=== PATIENT | female | born 1975 | race Caucasian/White ===

== ENCOUNTER → 2024-04-18 08:53 | Outpatient (REF) | payer BC, SELFPAY | LOC: HWRAD 08:53 | PROVIDERS: ATTENDING PHYSICIAN Internal Medicine Hematology & Oncology; FAMILY PHYSICIAN Family Medicine | DX: E83.110 Hereditary hemochromatosis (principal) | CPT/HCPCS: 76700 ==

== ENCOUNTER 2024-06-05 08:55 | Emergency (ER) | payer BC, SELFPAY ==
[2024-06-05 08:58] VITALS: BP 102/65
--- NOTE | 2024-06-05 09:54 | ED.GENMED ---
History of Present Illness
General
Chief Complaint: Urinary Symptoms
Source: patient
Time Seen by Provider: 06/05/24 09:18
History of Present Illness
History of Present Illness:
49-year-old female presents to the emergency room complaining of fever with a Tmax of 103, nausea, bilateral flank pain but right greater than left and upper abdominal pain. Symptoms began couple days ago. Patient states she feels similar today as
she did with a kidney infection in the past. She does not have any dysuria or frequency. Patient has a history of hemochromatosis for which she receives phlebotomy every 2 weeks. She does not take any prescription medications. She denies any
vaginal discharge.
Past History
Past History
ED Past Medical History: Other (thalasemia minor, hx of anemia, Migraines, hemochromatosis)
ED Past Surgical History: Cholecystectomy and Gynecological (Ovrian cyst removed)
Social History
Tobacco: Non-smoker
Alcohol: None
Drug: None
Personal:
Living: with family
Phy Exam
Physical Exam
Physical Exam:
General: Awake, Alert, Oriented X3. No acute distress.
Vitals: unremarkable
Head: Atraumatic
Eyes: Pupils equal, EOMI
Throat: Airway intact, no exudates
Neck: Trachea midline
Lungs: Clear and equal b/l
Heart: Regular rate, no murmurs
Abd: Soft, some tenderness outpatient right upper quadrant, no rebound no pulsatile mass
Back: Right CVA tenderness to percussion
Neuro: Nonfocal
Skin: Warm, dry, no rash
Extremities: pulses equal b/l, no edema
Course
Orders/Labs/Results
Orders:
Orders
06/05/24 09:33
Urinalysis Reflex To Culture Urgent
Date Specimen was Collected: 06/05/24
Time Specimen was Collected: 09:32
06/05/24 09:51
0.9% Sodium Chloride 1000 ml [Nss] 1,000 ml IV BOLUS
Ketorolac [Toradol] 15 mg IV NOW STA
Test Result ONCE
06/05/24 10:00
Complete Blood Count/With Diff Urgent
Comprehensive Metabolic Panel Urgent
HCG, Serum Qualitative Screen Urgent
Lipase Urgent
06/05/24 10:49
CR Chest - 2 Views Urgent
Comment:
Reason For Exam: fever, right lower chest/upper abd pain
06/05/24 10:52
CT Abd/pelvis W Iv Cont Urgent
Comment:
Reason For Exam: upper abd pain
06/05/24 10:56
COVID-19 Antigen Urgent
Source: Nasal Swab
Influenza A+B Rapid Molecular Urgent
RACHANA Source: Nasal Swab
Specimen Description:
06/05/24 12:39
Cephalexin Monohydrate [Keflex] 500 mg PO NOW STA
Abnormal Lab Results
06/05/24 06/05/24
09:33 10:00
Hgb 9.1 L g/dL
(12.0-16.0)
Hct 27.8 L %
(37.0-47.0)
MCV 60.7 L fL
(81.0-99.0)
MCH 19.9 L pg
(27.0-31.0)
MCHC 32.7 L g/dL
(33.0-37.0)
RDW 15.7 H %
(11.5-14.5)
Absolute Monos (auto) 1.0 H 10^3/uL
(0.1-0.6)
Lymphocytes % 17.0 L %
(20.5-51.1)
Monocytes % 14.7 H %
(1.7-9.3)
Glucose 114 H mg/dl
(70-99)
Total Bilirubin 1.4 H mg/dl
(0.2-1.3)
Total Protein 6.2 L g/dl
(6.3-8.2)
Urine Urobilinogen 3+ A
(Neg - 1+)
06/05/24 10:00
06/05/24 10:00
Vital Signs
Initial and Last Documented VS:
Initial Vital Signs
Temp Pulse Resp BP Pulse Ox
98.4 F 71 16 102/65 98
06/05/24 08:58 06/05/24 08:58 06/05/24 08:58 06/05/24 08:58 06/05/24 08:58
Last Documented Vital Signs
Temp Pulse Resp BP Pulse Ox
98.4 F 75 20 104/72 99
06/05/24 08:58 06/05/24 12:00 06/05/24 12:00 06/05/24 12:00 06/05/24 12:00
MDM/Problems Addressed
Differential Diagnosis Includes:
biliary colic, kidney stone, pyelo
MDM/Problems Addressed:
Patient presents with right flank pain and upper abdominal pain. Urinalysis surprisingly essentially normal. Labs show normal white count, normal LFTs other than a mildly elevated bilirubin. Patient does have a history of hemochromatosis which
explains the elevated bilirubin, the hemoglobin of 9.1. A CT scan of the abdomen and pelvis was ordered. There are hepatic changes that are also consistent with hemochromatosis. Right kidney appears to have changes consistent with pyelo-.
Patient revealed that she has been taking amoxicillin for the past couple days. Suspect this has caused the urine to be negative. Will treat with oral antibiotics. Patient stable for discharge home
*Radiology
Radiology exam reviewed: radiology read reviewed
*Pulse Oximetry
Patient hypoxic: no
*Critical Care Note
Total Time (30-74mins, 75-104mins- exclusive of procedures): Not Applicable
ED Attending Note
-
Portions of this chart may have been created with voice recognition software.� Occasional wrong word or��sound alike� substitutions may have occurred due to the inherent limitations of voice recognition software.
Discharge Plan
Departure
Patient Disposition: Home (Routine Discharge)
Date of Disposition: 06/05/24
Time of Disposition: 12:42
Patient with high blood pressure during this ER visit?: No
Condition: Good
Discharge Problem:
Pyelonephritis
Instructions: Urinary Tract Infection, Adult ED
Prescriptions:
New
cephalexin 500 mg capsule
500 mg PO BID 10 Days Qty: 20 0RF
ondansetron 4 mg tablet,disintegrating
4 mg PO Q6H PRN (Reason: nausea and vomiting) Qty: 20 0RF
No Action
cefdinir 300 MG capsule
300 mg PO BID Qty: 14 0RF
levofloxacin [Levaquin] 750 MG tablet
750 mg PO DAILY Qty: 6 0RF
Referrals:
Lee Ann Robles MD [Family Provider] -
Interventions
Interventions:
*Risk Screen - Suicide Last Done: 06/05/24 08:59
*General Assessment Last Done: 06/05/24 10:00
*Neglect/Abuse Screening Last Done: 06/05/24 08:59
*ED COVID-19 Vaccine History Last Done: 06/05/24 08:59
*Nursing Disposition Last Done: 06/05/24 13:04
ED-Female Genitourinary Assessment Last Done: 06/05/24 10:00
Discharge Date and Time
Discharge Date/Time: 06/05/24 13:04
Print Language: MAORI
[2024-06-05] MEDS: TORADOL 15 MG IV (10:01)
[2024-06-05] MEDS: NSS 1000 IV (10:01)
[2024-06-05 10:04] VITALS: BP 94/63
[2024-06-05 10:10] LABS: Urine Albumin Negative (Neg - Trace); Urine Bilirubin Negative (Negative); Urine Character Clear (Clear); Urine Color Yellow; Urine Glucose Negative (Negative); Urine Ketone Negative (Negative); Urine Leukocyte Negative (Negative); Urine Nitrite Negative (Negative); Urine Occult Blood Negative (Negative); Urine Specific Gravity 1.015 (<1.030); Urine Urobilinogen 3+ (Neg - 1+)
[2024-06-05 10:35] LABS: HCG, Serum Qualitative Screen Negative
[2024-06-05 10:38] LABS: ALT (SGPT) 30 U/L (0-35); AST (SGOT) 36 U/L (14-36); Albumin 3.8 g/dl (3.5-5.0); Alkaline Phosphatase 60 U/L (38-126); Blood Urea Nitrogen 13 mg/dl (7-17); Calcium 8.7 mg/dl (8.4-10.2); Carbon Dioxide 27 mmol/L (22-30); Chloride 104 mmol/L (98-107); Glucose 114 mg/dl (70-99); Lipase 42 U/L (23-300); Potassium 3.9 mmol/L (3.5-5.1); Sodium 139 mmol/L (135-145); Total Bilirubin 1.4 mg/dl (0.2-1.3); Total Protein 6.2 g/dl (6.3-8.2); eGFR > 60.00
[2024-06-05 10:47] LABS: % Basophils 0.3 % (0-2); % Eosinophils 1.1 % (0-6); % Immature Granulocytes 0.3 % (0-0.5); % Monocytes 14.7 % (1.7-9.3); % Neutrophils 66.6 % (42.2-75.2); Absolute Eosinophils 0.1 10^3/uL (0-0.7); Absolute Lymphocytes 1.2 10^3/uL (1.2-3.4); Absolute Neutrophils 4.6 10^3/uL (1.4-6.5); Hematocrit 27.8 % (37.0-47.0); Hemoglobin 9.1 g/dL (12.0-16.0); Mean Corp Hgb Conc. 32.7 g/dL (33.0-37.0); Mean Corpuscular Hgb 19.9 pg (27.0-31.0); Mean Corpuscular Volume 60.7 fL (81.0-99.0); Nucleated Red Blood Cells % 0 %; Platelet Count 137 10^3/uL (130-400); Red Blood Cell Count 4.58 10^6/uL (4.20-5.40); Red Cell Dist. Width 15.7 % (11.5-14.5)
[2024-06-05 11:20] LABS: COVID-19 Antigen Negative (Negative)
[2024-06-05 12:00] VITALS: BP 104/72
[2024-06-05] MEDS: KEFLEX 500 MG PO (12:49)
== END 2024-06-05 13:04 | disposition home or self-care (01) ==
LOC: EMR 08:55
PROVIDERS: EMERGENCY PHYSICIAN Emergency Medicine; FAMILY PHYSICIAN Family Medicine
DX: N12 Tubulo-interstitial nephritis, not specified as acute or chronic (principal); Z11.52 Encounter for screening for COVID-19
CPT/HCPCS: 99285; 96374; 96361; 71046; 74177; 80053; 81003; 83690; 84703; 85025; 87502; 87811; Q9967

== ENCOUNTER 2025-02-07 07:49 | Inpatient (IN) | payer BC, SELFPAY ==
[2025-02-07] VITALS (14 sets, daily range): BP systolic 98–134; BP diastolic 53–74; BMI 30.4; BMI 29.9
[2025-02-07 01:21] LABS: HCG, Serum Qualitative Screen Negative; Hematocrit 31.2 % (37.0-47.0); Hemoglobin 10.1 g/dL (12.0-16.0); Mean Corp Hgb Conc. 32.4 g/dL (33.0-37.0); Mean Corpuscular Volume 63.0 fL (81.0-99.0); Nucleated Red Blood Cells % 0 %; Platelet Count 155 10^3/uL (130-400); Red Cell Dist. Width 18.1 % (11.5-14.5)
[2025-02-07 01:28] LABS: ALT (SGPT) 41 U/L (0-35); AST (SGOT) 40 U/L (14-36); Albumin 4.5 g/dl (3.5-5.0); Alkaline Phosphatase 86 U/L (38-126); Blood Urea Nitrogen 15 mg/dl (7-17); Calcium 9.0 mg/dl (8.4-10.2); Carbon Dioxide 24 mmol/L (22-30); Chloride 108 mmol/L (98-107); Glucose 123 mg/dl (70-99); Potassium 3.9 mmol/L (3.5-5.1); Sodium 138 mmol/L (135-145); Total Protein 7.1 g/dl (6.3-8.2); eGFR > 60.00
[2025-02-07 01:32] LABS: COVID-19 Antigen Negative (Negative)
[2025-02-07 03:13] LABS: Urine Character Clear (Clear)
[2025-02-07 03:56] LABS: Urine Squamous Cell 16-20 /LPF (Few)
[2025-02-07 03:57] LABS: Urine White Cell 50-60 /HPF (0-5)
--- NOTE | 2025-02-07 05:02 | ED.GENMED ---
History of Present Illness
General
Chief Complaint: Head Injury
Source: patient
Exam Limitations: none
Time Seen by Provider: 02/07/25 04:41
Nursing documentation reviewed up to this point in time: agreed with
History of Present Illness
History of Present Illness:
Note:
CHIEF COMPLAINT(S)
Headache following a head injury.
HISTORY OF PRESENT ILLNESS
The patient is a 50-year-old female with a pmh of migraines, hemochromatosis, who presented with a headache following a head injury sustained three days ago. The patient reports that she bent down to pick something off the ground, and as she stood
up, she struck her head on a lift gate that was closing. Since the incident, she has experienced a persistent headache and reports a sensation of 'everything hurts.' The patient confirms the presence of a headache at the time of examination and has
been experiencing associated symptoms, including fever and chills, with the highest fever making her feel extremely hot, necessitating bundling in blankets for warmth. Additionally, she reports vague abdominal discomfort, beginning around the same
time as the head injury. No visual changes reported however she has had nausea and vomiting were reported. The abdominal discomfort is not accompanied by urinary symptoms. The patient mentioned a possible history of a previous kidney infection and
states that her current symptoms match that experience.
PHYSICAL EXAM
General: Patient is well appearing and in no acute distress; non-toxic
Skin: Warm and dry, no rashes or lesions
Head: Normocephalic, atraumatic
Eyes: Sclera non-icteric. EOMs intact.
Cardiac: Regular rate and rhythm, no murmurs
Peripheral Vascular: No lower extremity swelling or edema
Pulm: Normal respiratory effort
Abdomen: Left sided abdominal tenderness to palpation
Neuro: CN II-XII intact, no focal neurologic deficits.
Psychiatric: Appropriate mood and affect.
Nursing notes reviewed and vital signs reviewed.
PROBLEM LIST
Acute:
- Headache following head injury
- Fever and chills
- Abdominal discomfort
PLAN
- Administer medications to alleviate headache and provide comfort.
- Perform a computed tomography (CT) scan of the head to rule out any intracranial injury.
- Obtain a CT scan of the abdomen to evaluate for kidney stones or infections, given the elevated bilirubin and abdominal pain symptoms.
- Provide intravenous fluids for hydration and to help manage symptoms.
DIFFERENTIAL DIAGNOSIS
The Differential Diagnosis includes, in no particular order and is not limited to:
- Post-traumatic headache
- Concussion
- Intracranial hemorrhage
- Meningitis
- Sinusitis
- Gallbladder issues
- Liver dysfunction
- Kidney infection
- Kidney stones
- Dehydration
MDM/DISPOSITION
50 y/o female presents to the ER with multiple complaints, with her chief complaint of fevers, chills, abdominal pain, vomiting. She states that it feels like when she had a kidney infection in the past. CT and urinalysis concerning for acute
pyelonephritis. Patient developed a fever while in the ER. Will admit for IV abx. Will send off blood cultures and lactic acid.
Past History
Past History
ED Past Medical History: Other (thalasemia minor, hx of anemia, Migraines, hemochromatosis)
ED Past Surgical History: Cholecystectomy and Gynecological (Ovrian cyst removed)
Social History
Tobacco: Non-smoker
Alcohol: None
Drug: None
Personal:
Living: with family
Phy Exam
Physical Exam
Physical Exam:
see hpi
Course
Orders/Labs/Results
Orders:
Orders
02/07/25 00:53
Test Result ONCE
02/07/25 01:03
COVID-19 Antigen Urgent
Source: Nasal Swab
Complete Blood Count/With Diff Urgent
Comprehensive Metabolic Panel Urgent
HCG, Serum Qualitative Screen Urgent
INF RAPID [Influenza A+B Rapid Molecular] Urgent
RACHANA Source: Nasal Swab
Specimen Description:
02/07/25 03:02
Urinalysis Reflex To Culture Urgent
Date Specimen was Collected: 02/07/25
Time Specimen was Collected: 03:01
Urine Microscopic Reflex Cult Urgent
Urine Culture Urgent
RACHANA Source: U
Specimen Description:
Date Specimen was Collected: 02/07/25
Time Specimen was Collected: 03:01
02/07/25 05:01
CT Abd/pelvis W Iv Cont Urgent
Comment:
Reason For Exam: left sided abdominal pain
CT Head W/o Iv Contrast Urgent
Comment:
Reason For Exam: dizziness, head trauma
Diphenhydramine [Benadryl] 25 mg IV NOW STA
Metoclopramide [Reglan] 10 mg IV NOW STA
02/07/25 05:25
0.9% Sodium Chloride 500 ml [Nss] 500 ml IV BOLUS
02/07/25 06:11
Acetaminophen 1000MG/100Ml [Ofirmev] 1,000 mg in 100 ml IV ONCE
Acetaminophen IV Indication:: Targeted Temp Management
02/07/25 06:12
Acetaminophen 1000MG/100Ml [Ofirmev] 1,000 mg in 100 ml .ROUTE .STK-MED
02/07/25 06:22
Lactic Acid Q4H
Comment: ON ICE, CANCEL 2ND ORDER IF FIRST LACTIC ACID LEVEL <2
Blood Culture Q20M
RACHANA Source: Blood/Venous
Specimen Description:
Comment: Urgent from separate sites. If patient screens positive for possible sepsis
Blood Culture Q20M
RACHANA Source: Blood/Venous
Specimen Description:
Comment: Urgent from separate sites. If patient screens positive for possible sepsis
02/07/25 07:04
CefTRIAXone [Rocephin] 1,000 mg IV NOW STA
02/07/25 07:43
Admit/Transfer Patient As Directed
Co-Sign Provider:
Level of Care: Inpatient admission
Assign to:: Medical/Surgical
Physician / Group: Efren/hospitalist
Diagnosis: sepsis, pyelo
Reason for Hospitalization: sepsis, pyelo
Expected length of stay greater than two midnights?: Yes
ELOS- Estimated Length of Stay in days: 3
I certify the patient meets the requirements for IP care: Yes
Code Status As Directed
Resuscitation Status: Full Code
PRN Pain Medication Management As Directed
May give lesser potent ordered pain med per pt: Yes
preference::
Protocol:: Medication orders for pain may be administered in a
manner that supports deferring to patient preference
when the pt is:
- Requesting an ordered lesser potent pain medication.
Least to most potent pain medications are defined
as: acetaminophen < NSAID < tramadol < opioids
(morphine, oxycodone, hydromorphone).
- Requesting a lesser dose of the same medication IF
ORDERED.
- Requesting a less intrusive route of administration
if both routes are prescribed by the provider (PO <
IV).
02/07/25 09:30
Acetaminophen [Tylenol] 650 mg PO Q4HPRN PRN
Bisacodyl [Dulcolax] 10 mg RECTAL [id number] PRN
Docusate W/Senna [Senokot-S] 1 tablet PO BIDPRN PRN
Ondansetron Injectable [Zofran] 4 mg IV Q6HPRN PRN
Polyethylene Glycol Powder [Miralax] 17 grams PO DAILYPRN PRN
02/07/25 09:30
Activity As Directed
Activity Level: As Tolerated
Advance Diet as Tolerated As Directed
Goal Diet: Regular
Vital Signs As Directed
Frequency: Per unit guidelines
DX Deep Vein Thrombosis Video Routine
02/07/25 Lunch
Clear Liquid
At Your Request: Full Participation
Does patient need a safe tray?: No
02/07/25 18:00
Enoxaparin Sodium [Lovenox] 40 mg SC QPM
02/08/25 06:00
Basic Metabolic Panel IN AM
Complete Blood Count/With Diff IN AM
Magnesium IN AM
02/08/25 08:00
CefTRIAXone [Rocephin] 1,000 mg IV Q24H
02/09/25 06:00
Basic Metabolic Panel IN AM
Complete Blood Count/With Diff IN AM
02/10/25 06:00
Basic Metabolic Panel IN AM
Complete Blood Count/With Diff IN AM
02/11/25 06:00
Basic Metabolic Panel IN AM
Complete Blood Count/With Diff IN AM
02/12/25 06:00
Basic Metabolic Panel IN AM
Complete Blood Count/With Diff IN AM
Abnormal Lab Results
02/07/25 02/07/25
01:03 03:02
Hgb 10.1 L g/dL
(12.0-16.0)
Hct 31.2 L %
(37.0-47.0)
MCV 63.0 L fL
(81.0-99.0)
MCH 20.4 L pg
(27.0-31.0)
MCHC 32.4 L g/dL
(33.0-37.0)
RDW 18.1 H %
(11.5-14.5)
Absolute Neuts (auto) 8.2 H 10^3/uL
(1.4-6.5)
Absolute Lymphs (auto) 0.6 L 10^3/uL
(1.2-3.4)
Absolute Monos (auto) 1.0 H 10^3/uL
(0.1-0.6)
Neutrophils % 83.1 H %
(42.2-75.2)
Lymphocytes % 6.0 L %
(20.5-51.1)
Monocytes % 10.1 H %
(1.7-9.3)
Chloride 108 H mmol/L
(98-107)
Glucose 123 H mg/dl
(70-99)
Total Bilirubin 2.7 H mg/dl
(0.2-1.3)
AST 40 H U/L
(14-36)
ALT 41 H U/L
(0-35)
Ur Occult Blood Reflex 2+ A
(Negative)
Urine Urobilinogen 2+ A
(Neg - 1+)
Leukocyte Esterase Rfl 3+ A
(Negative)
Urine RBC 3-6 A /HPF
(0-2)
Urine WBC (Reflex) 50-60 A /HPF
(0-5)
Urine Bacteria (Reflex) Few A
(Negative)
Urine Yeast Few A
(Negative)
02/07/25 01:03
02/07/25 01:03
Vital Signs
Initial and Last Documented VS:
Initial Vital Signs
Temp Pulse Resp BP Pulse Ox
98.2 F 76 24 134/74 98
02/07/25 00:49 02/07/25 00:49 02/07/25 00:49 02/07/25 00:49 02/07/25 00:49
Last Documented Vital Signs
Temp Pulse Resp BP Pulse Ox
99.4 F 74 16 99/58 98
02/07/25 09:38 02/07/25 09:38 02/07/25 09:38 02/07/25 09:38 02/07/25 09:38
*Pulse Oximetry
SaO2: 99
Oxygen Mode of Delivery: Room air
Patient hypoxic: no
*Critical Care Note
Total Time (30-74mins, 75-104mins- exclusive of procedures): Not Applicable
ED Attending Note
-
Portions of this chart may have been created with voice recognition software.� Occasional wrong word or��sound alike� substitutions may have occurred due to the inherent limitations of voice recognition software.
Discharge Plan
Departure
Patient Disposition: Admit
Date of Disposition: 02/07/25
Time of Disposition: 07:11
Admit to: Med/Surg
Presentation/result/management discussed w/ accepting MD/DO: Hospitalist
Patient with high blood pressure during this ER visit?: Yes
Condition: Fair
Discharge Problem:
Acute pyelonephritis, Fever
Interventions
Interventions:
*Risk Screen - Suicide Last Done: 02/07/25 00:49
*General Assessment Last Done: 02/07/25 07:55
*Neglect/Abuse Screening Last Done: 02/07/25 00:49
*ED- Fall Risk Assessment Last Done: 02/07/25 07:55
*ED COVID-19 Vaccine History Last Done: 02/07/25 07:55
*Nursing Disposition Last Done: 02/07/25 08:49
ED- Neurological Assessment Last Done: 02/07/25 03:32
ED-Skin Assessment Last Done: 02/07/25 07:55
Discharge Date and Time
Discharge Date/Time: 02/07/25 09:25
[2025-02-07] MEDS: BENADRYL 25 MG IV (05:09)
[2025-02-07] MEDS: REGLAN 10 MG IV (05:10)
[2025-02-07] MEDS: NSS 500 IV (05:40)
[2025-02-07] MEDS: OFIRMEV 100 IV (06:14)
[2025-02-07] MEDS: ROCEPHIN 1000 MG IV (07:25)
--- NOTE | 2025-02-07 07:28 | HPS.HSE ---
Family Physician
-
Family Physician: NOT KNOW UNKNOWN - PT DOES
Chief Complaint
-
headache
N/V/abd pain, fever
History of Present Illness
HPI: 50-year-old female with PMH thalassemia minor/anemia, migraines, hemochromatosis; p/w headache following a head injury sustained three days ago.
This happened when she bent down to pick something up, and struck her head on a lift gate that was closing when she stood up.
She also c/o abd pain, N/V, fever/chills for about 3 days too.
Medical History
Past Medical History
Past Medical History: Reports Other
Additional Past Medical History:
thalassemia minor/anemia,
migraines,
hemochromatosis
Past Surgical History: Reports Cholecystectomy and Gynocological (ovarian cyst removal )
Social History
Tobacco: Non-smoker
Alcohol: Occasional
Living: With Family
Family History
Family History: Not pertinent
Allergies / Home Medications
Allergies reflects when Allergies were last updated in [facility].
Home Medications with original date entered in [facility]
Allergy/Medication List:
Allergies
Allergy/AdvReac Type Severity Reaction Status Date / Time
No Known Allergies Allergy Verified 02/07/25 00:52
Home Medications
ondansetron 4 mg disintegrating tablet 4 mg PO Q6H PRN nausea and vomiting #20 tabs 06/05/24
Review of Systems
-
Abdomen/GI: Reports See HPI, Abdominal Pain (lower quadrants ), Nausea and Vomiting
Neurological: Reports Headache
Physical Exam
Vital Signs
Vital Signs
Temp Pulse Resp BP Pulse Ox
38.0 C H 72 20 106/60 96
02/07/25 06:14 02/07/25 06:30 02/07/25 06:30 02/07/25 06:00 02/07/25 06:30
Physical Exam
General: Well Developed, Well Nourished, No Apparent Distress, Comfortable and Conversant
HEENT: NormoCephalic, Moist mucous membranes and Atraumatic
Respiratory: Clear and Non Labored Respirations; No Accessory Resp Muscle Use
Cardiac: S1/S2 and Regular Rhythm; No Murmur or Rub
GI: Soft, Non Tender, Non Distended and Normal Bowel Sounds; No Organomegaly
Rectal: Deferred by Provider
Musculoskeletal: No Clubbing, No Cyanosis and No Edema
Skin: No Rash
Neuro: Awake and Alert
Psych: Calm and Intact Judgment/Insight
Laboratory Results
-
02/07/25 01:03
02/07/25 01:03
Laboratory Results
Lactic Acid Cancelled 02/07/25 10:15
Total Bilirubin 2.7 mg/dl (0.2-1.3) H 02/07/25 01:03
AST 40 U/L (14-36) H 02/07/25 01:03
ALT 41 U/L (0-35) H 02/07/25 01:03
Alkaline Phosphatase 86 U/L (38-126) 02/07/25 01:03
Data Reviewed
-
Lab Data: Labs Reviewed by me
Impression/Plan
-
HPI: 50-year-old female with PMH thalassemia minor/anemia, migraines, hemochromatosis; p/w headache following a head injury sustained three days ago.
This happened when she bent down to pick something up, and struck her head on a lift gate that was closing when she stood up.
She also c/o abd pain, N/V, fever/chills for about 3 days too.
A/P:
# Sepsis POA 2/[address] imaging
Follow formal CT AP report
Follow blood cultures and urine culture
cont Ceftriaxone
Clears for now 2/2 N/V, advance when able
# headache from head injury
Follow CT head formal report
Tylenol for mild pain and fever
Other medical conditions:
# thalassemia minor/anemia
# migraines
# hemochromatosis
DVT ppx: Lovenox SQ
FC
--- NOTE | 2025-02-07 09:02 | EDRN ---
this RN called the receiving unit and notified them that paper report was going to be tubed up
[2025-02-07] MEDS: TYLENOL 650 MG PO ×3 (09:49→23:02)
--- NOTE | 2025-02-07 10:12 | PTCARENOTE ---
Received patient from ED via stretcher. AAOx3, drowsy but arousable. Assessed and oriented to room. Complaining of a headache 5/10. Tylenol given as ordered. Call regalado in close reach.
--- NOTE | 2025-02-07 12:27 | CM ---
CM met with pt bedside
P resides with her three minor children (11, 16, 17) and has custody of her nephew (17)
Care has been arranged for her children
They reside in a splt level home with 4 CORTES, 15 steps to bedroom and full bathroom
Pt is indep with her ADLs, no DMEs, drives+
Denies financial insecurities
PCP- [facility]
Rx- [facility]
Discharge Disposition- anticipate no needs on dc
[2025-02-07] MEDS: FIORICET 1 TAB PO (13:51)
[2025-02-07] MEDS: IMITREX 50 MG PO (18:06)
[2025-02-08] MEDS: STERILE WATER FOR INJECTION 10 ML IV (07:43)
[2025-02-08] MEDS: ROCEPHIN 1000 MG IV (07:43)
[2025-02-08 07:47] VITALS: BP 101/79
[2025-02-08 07:50] LABS: Hematocrit 29.6 % (37.0-47.0); Hemoglobin 9.5 g/dL (12.0-16.0); Mean Corp Hgb Conc. 32.1 g/dL (33.0-37.0); Mean Corpuscular Volume 63.1 fL (81.0-99.0); Nucleated Red Blood Cells % 0 %; Platelet Count 143 10^3/uL (130-400); Red Cell Dist. Width 17.8 % (11.5-14.5)
[2025-02-08 08:02] LABS: Blood Urea Nitrogen 10 mg/dl (7-17); Calcium 8.8 mg/dl (8.4-10.2); Carbon Dioxide 24 mmol/L (22-30); Chloride 105 mmol/L (98-107); Estimated Creatinine Clearance 99 ml/min; Glucose 98 mg/dl (70-99); Magnesium 2.0 mg/dl (1.6-2.3); Potassium 3.6 mmol/L (3.5-5.1); Sodium 136 mmol/L (135-145); eGFR > 60.00
[2025-02-08] MEDS: TYLENOL #3 1 TABLET PO ×3 (08:54→19:27)
--- NOTE | 2025-02-08 10:29 | W.PN.HOSP.TC ---
Today's Communication/Plan
-
see A/P
Assessment / Plan
Assessment / Plan
HPI: 50-year-old female with PMH thalassemia minor/anemia, migraines, hemochromatosis; p/w headache following a head injury sustained three days ago.
This happened when she bent down to pick something up, and struck her head on a lift gate that was closing when she stood up.
She also c/o abd pain, N/V, fever/chills for about [address] AP:
1. Findings are most consistent with bilateral pyelonephritis.
2. Splenomegaly, without significant change from previous examination.
3. Post cholecystectomy.
A/P:
# Sepsis POA 2/[address] imaging
Follow urine culture,
blood cultures x2 negative so far
cont Ceftriaxone
N/V appear to have resolved, advance clears to solid diet
# headache from recent head injury, improved
CT head without acute intracranial abnormality.
Tylenol #3 for mild pain and fever
Other medical conditions:
# thalassemia minor/anemia
# migraines
# hemochromatosis
DVT ppx: Lovenox SQ
FC
DW RN
Anticipated Discharge: Within 24 hours
Subjective/Interval History
-
Date of Service: February 08, 2025
Objective Data
-
Labs:
Laboratory Results
02/08/25
07:16
WBC 10.0
Hgb 9.5 L
Hct 29.6 L
Plt Count 143
Sodium 136
Potassium 3.6
Chloride 105
Carbon Dioxide 24
BUN 10
Creatinine 0.7
Glucose 98
Calcium 8.8
Vital Signs:
Vital Signs
Temp Pulse Resp BP Pulse Ox
37.8 C 79 18 101/79 98
02/08/25 07:47 02/08/25 07:47 02/08/25 07:47 02/08/25 07:47 02/08/25 07:50
I&O
02/07/25 02/08/25 02/09/25
06:59 06:59 06:59
Intake Total 1440 / 1440
Balance 1440 / 1440
Review of Systems
-
History Source: Patient
All other systems: Reviewed and negative
Abdomen/GI: Denies Abdominal Pain (much resolved )
Neuro: Denies Headache (resolved )
Physical Exam
-
General: Well Developed, Well Nourished, No Apparent Distress, Comfortable and Conversant; Negative Respiratory Distress
HEENT: Normocephalic, Atraumatic, Nose Appears Normal and Ears Appear Normal; Negative Oxygen
Respiratory: Clear to Auscultation and Non Labored Respirations; Negative Accessory Resp Muscle Use
Cardiac: Regular Rhythm and S1/S2
GI: Soft, Nontender, Nondistended and Normal Bowel Sounds
Skin: Warm and Dry
Neuro: Awake and Alert
Psych: Calm and Intact Judgement/Insight
Data Reviewed
-
CT Scan: Report Reviewed by me
Labs: Labs Reviewed by me
[2025-02-08 15:42] VITALS: BP 109/63
[2025-02-08 23:40] VITALS: BP 99/53
[2025-02-09] MEDS: TYLENOL #3 1 TABLET PO ×2 (01:35→08:37)
[2025-02-09 07:20] VITALS: BP 132/77
[2025-02-09 07:55] VITALS: BP 132/77
[2025-02-09 07:58] LABS: Hematocrit 28.5 % (37.0-47.0); Hemoglobin 9.2 g/dL (12.0-16.0); Mean Corp Hgb Conc. 32.3 g/dL (33.0-37.0); Mean Corpuscular Volume 63.1 fL (81.0-99.0); Nucleated Red Blood Cells % 0 %; Platelet Count 144 10^3/uL (130-400); Red Cell Dist. Width 17.2 % (11.5-14.5)
[2025-02-09 08:22] LABS: Blood Urea Nitrogen 13 mg/dl (7-17); Calcium 8.5 mg/dl (8.4-10.2); Carbon Dioxide 24 mmol/L (22-30); Chloride 108 mmol/L (98-107); Estimated Creatinine Clearance 116 ml/min; Glucose 100 mg/dl (70-99); Potassium 3.9 mmol/L (3.5-5.1); Sodium 138 mmol/L (135-145); eGFR > 60.00
[2025-02-09] MEDS: STERILE WATER FOR INJECTION 10 ML IV (08:38)
[2025-02-09] MEDS: ROCEPHIN 1000 MG IV (08:38)
--- NOTE | 2025-02-09 09:23 | W.PN.HOSP.TC ---
Addendum entered and electronically signed by Amie Schwartz MD 02/09/25 13:19:
total DC time 40 min
Original Note:
Today's Communication/Plan
-
see A/P
DC today
Assessment / Plan
Assessment / Plan
HPI: 50-year-old female with PMH thalassemia minor/anemia, migraines, hemochromatosis; p/w headache following a head injury sustained three days ago.
This happened when she bent down to pick something up, and struck her head on a lift gate that was closing when she stood up.
She also c/o abd pain, N/V, fever/chills for about [address] AP:
1. Findings are most consistent with bilateral pyelonephritis.
2. Splenomegaly, without significant change from previous examination.
3. Post cholecystectomy.
A/P:
# Sepsis POA 2/[address] imaging
urine culture positive for E coli, sensitive to Keflex
blood cultures x2 negative
Deescalate Ceftriaxone to Keflex on discharge, can treat for 3 more days
N/V resolved and diet advanced to solid
Can start methenamine with vit C after Abx for recurrent UTI prevention
# headache from recent head injury, improved
CT head without acute intracranial abnormality.
Tylenol #3 for mild pain and fever
Other medical conditions:
# thalassemia minor/anemia
# migraines
# hemochromatosis
DVT ppx: Lovenox SQ
FC
DW RN
Anticipated Discharge: Today
Subjective/Interval History
-
Date of Service: February 09, 2025
Objective Data
-
Labs:
Laboratory Results
02/09/25
07:36
WBC 6.8
Hgb 9.2 L
Hct 28.5 L
Plt Count 144
Sodium 138
Potassium 3.9
Chloride 108 H
Carbon Dioxide 24
BUN 13
Creatinine 0.6
Glucose 100 H
Calcium 8.5
Vital Signs:
Vital Signs
Temp Pulse Resp BP Pulse Ox
36.6 C 79 14 132/77 98
02/09/25 07:20 02/09/25 07:20 02/09/25 07:20 02/09/25 07:20 02/09/25 08:20
I&O
02/08/25 02/09/25 02/10/25
06:59 06:59 06:59
Intake Total 1440 / 1440 1260 / 1260 480 / 480
Balance 1440 / 1440 1260 / 1260 480 / 480
--- NOTE | 2025-02-09 10:25 | CM ---
Patient for d/c today
No CM needs at this time
Plan: Home, no needs
--- NOTE | 2025-02-09 12:58 | W.DCSUMMARY ---
Discharge Summary
Discharge Data
Date of Admission: 02/07/25
Date of Discharge: 02/09/25
-
Pending Results: No
Hospital Course
Principal Diagnosis:
Sepsis on admission due to bilateral pyelonephritis
Headache from recent head injury, improved.
Chronic Diagnoses:�
Thalassemia minor/anemia
Migraines
Hemochromatosis
Consultations:�
None
Procedures:�
None
Clinical course:�
This is a 50-year-old female with past medical history as stated above, who presented with suprapubic tenderness.
Of note, she stated that she sustained a head injury from knocking her head on a lift gate about 3 days prior to admission. She also complained of headache from this injury.
Problem 1:
Sepsis POA 2/[address] imaging[address]
Her urine culture grew E coli sensitive to Keflex.
She received ceftriaxone (for 3 days) while in the hospital, and was discharged with Keflex for 3 more days.
She can start methenamine for recurrent UTI prevention.
She does not need to take vitamin C with methenamine in setting of her history of hemochromatosis.
Problem 2:
Headache from recent head injury, improved.
Her CT head was without acute intracranial abnormality.
She can continue Tylenol #3 for mild pain.
As for the rest of her medical problems, they were stable during her hospital stay.
Discharge Plan
-
Patient Disposition: Home (Routine Discharge)
Discharge Diagnosis/Procedures: Bilateral pyelonephritis with UTI with E coli
Condition: Good
Diet: As tolerated
Activity: As tolerated
Driving Restrictions: As prior to admission
Referrals:
UNKNOWN - PT DOES,NOT KNOW [Family Provider] - in less than 1 week
Additional Discharge Medication Instructions: Continue Keflex for 3 more days.
Start methenamine with vit C after Keflex for recurrent UTI prevention
Prescriptions:
New
cephalexin 500 mg capsule
500 mg PO BID 3 Days Qty: 6 0RF
methenamine hippurate 1 gram tablet
1 g PO Q12H Qty: 60 0RF
ascorbic acid (vitamin C) [Vitamin C] 500 mg tablet
500 mg PO BID Qty: 60 0RF
acetaminophen-codeine 300-30 mg Tablet
1 tab PO Q12H PRN (Reason: Pain) Qty: 5 0RF
Discharge Orders:
Discharge Patient (As Directed); Ordered 02/09/25
Ordered By: Amie Schwartz
Discharge Date and Time
Discharge Date/Time: 02/09/25 10:46
Print Language: OCCITAN
== END 2025-02-09 10:46 | disposition home or self-care (01) | DRG 872 ==
LOC: 4 EAST ACU 07:49
PROVIDERS: Physician Assistant; ADMITTING PHYSICIAN Internal Medicine; EMERGENCY PHYSICIAN Student in an Organized Health Care Education/Training Program
DX: A41.9 Sepsis, unspecified organism (principal); N10 Acute pyelonephritis; R51.9 Headache, unspecified; D56.3 Thalassemia minor; S09.90XA Unspecified injury of head, initial encounter; B96.20 Unspecified Escherichia coli [E. coli] as the cause of diseases classified elsewhere; E83.119 Hemochromatosis, unspecified; W22.8XXA Striking against or struck by other objects, initial encounter; Y93.89 Activity, other specified; Y92.9 Unspecified place or not applicable; Z87.440 Personal history of urinary (tract) infections; Z90.49 Acquired absence of other specified parts of digestive tract; Z11.52 Encounter for screening for COVID-19
CPT/HCPCS: 70450; 74177; 80048; 80053; 80306; 81003; 81015; 83605; 83735; 84703; 85025; 87040; 87077; 87086; 87186; 87502; 87811; 96361; 96374; 96375; 99285; Q9967